=== PATIENT | female | born 1990 | race American Indian/Alaskan Native ===

== ENCOUNTER 2017-01-26 22:40 | Emergency (ER) | payer SELFPAY ==
[2017-01-26] MEDS ORDERED: Sodium Chloride 0.9% 1,000 ML IV ONE (22:55)
[2017-01-26] MEDS ORDERED: Ketorolac 30 MG/ML SDV IVPUSH ONE (23:28)
[2017-01-27] MEDS ORDERED: diphenhydrAMINE 50 MG/ML SDV IVPUSH ONE (00:16)
[2017-01-27] MEDS ORDERED: cefTRIAXone 1 GM in Sodium Chloride 0.9% 50 ML IV ONE (00:17)
[2017-01-27] MEDS ORDERED: cefTRIAXone 1 GM Vial ONE (00:20)
--- NOTE | 2017-01-27 00:23 | EDM.PDOC ---
ED HPI GENERAL MEDICAL PROBLEM - General Chief Complaint: General Stated Complaint: TROUBLE BREATHING Time Seen by Provider: 01/26/17 23:00 Source of Information: Reports: Patient History Limitations: Reports: No Limitations - History of Present Illness INITIAL COMMENTS - FREE TEXT/NARRATIVE: c/o headache yesterday on left side of head, tonight now on right, better after alkazseltzer plus. Blurred vision tonight. Hx similar with migraines. Usually takes benadryl and excedrin migraine but did not have any. No vomiting. No fever. Duration: Day(s): Location: Reports: Head Quality: Reports: Throbbing Headache Pain Score (Numeric/FACES): 9 - Related Data Allergies Allergy/AdvReac Type Severity Reaction Status Date / Time No Known Allergies Allergy Verified 01/26/17 23:11 Home Meds: Home Meds . 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: positive for chlamydia Neurological History: Reports: Migraines Hematologic History: Reports: Anemia - Infectious Disease History Infectious Disease History: Reports: Hepatitis C Social & Family History - Family History Family Medical History: Noncontributory - Tobacco Use Smoking Status *Q: Current Every Day Smoker Years of Tobacco use: 9 Packs/Tins Daily: 0.2 Used Tobacco, but Quit: Yes Month Tobacco Last Used: 10 Second Hand Smoke Exposure: Yes - Caffeine Use Caffeine Use: Reports: Coffee, Soda - Alcohol Use Days Per Week of Alcohol Use: 0 - Recreational Drug Use Recreational Drug Use: No Drug Use in Last 12 Months: Yes ED ROS GENERAL - Review of Systems Review Of Systems: See Below Constitutional: Reports: No Symptoms HEENT: Reports: Vision Change (blurred) Respiratory: Reports: No Symptoms Cardiovascular: Reports: No Symptoms GI/Abdominal: Reports: No Symptoms : Reports: No Symptoms Musculoskeletal: Reports: No Symptoms Skin: Reports: No Symptoms Neurological: Reports: Headache ED EXAM, GENERAL - Physical Exam Exam: See Below Exam Limited By: No Limitations General Appearance: Alert, Mild Distress Eye Exam: Bilateral Eye: EOMI, PERRL Ears: Normal External Exam Nose: Normal Inspection Throat/Mouth: Normal Inspection Head: Atraumatic, Normocephalic Respiratory/Chest: No Respiratory Distress, Lungs Clear, Normal Breath Sounds Cardiovascular: Normal Peripheral Pulses, Regular Rate, Rhythm GI/Abdominal: Normal Bowel Sounds (Female) Exam: Normal External Exam Back Exam: Normal Inspection Extremities: Normal Inspection Neurological: Alert, Oriented, CN II-XII Intact, Normal Cognition, Normal Gait, No Motor/Sensory Deficits Psychiatric: Anxious, Other (dramatic) Skin Exam: Warm, Dry, Intact, Normal Color, No Rash Course - Vital Signs Last Recorded V/S: Last Vital Signs Temp 98.1 F 01/27/17 00:53 Pulse 97 01/27/17 00:53 Resp 16 01/27/17 00:53 BP 92/46 L 01/27/17 00:53 Pulse Ox 97 01/27/17 00:53 - Orders/Labs/Meds Orders: Active Orders 24 hr Category Date Time Status CULTURE STREP A CONFIRMATION [] Stat Lab 01/26/17 23:10 Results STREP SCRN A RAPID W CULT CONF [] Stat Lab 01/26/17 23:10 Results Labs: Laboratory Tests 01/26/17 01/26/17 01/26/17 Range/Units 23:20 23:20 23:20 Urine Color Yellow (YELLOW) Urine Appearance Cloudy (CLEAR) Urine pH 5.5 (5.0-9.0) Ur Specific [place] 1.010 (1.005-1.030) Urine Protein 100 H (NEGATIVE) Urine Glucose (UA) Negative (NEGATIVE) Urine Ketones Negative (NEGATIVE) Urine Occult Blood Moderate H (NEGATIVE) Urine Nitrite Positive H (NEGATIVE) Urine Bilirubin Negative (NEGATIVE) Urine Urobilinogen 1.0 (0.2-1.0) mg/dL Ur Leukocyte Esterase Moderate H (NEGATIVE) Urine RBC 0-5 /HPF Urine WBC >100 H (0-5/HPF) /HPF Ur Epithelial Cells Many H /HPF Urine Bacteria Many H (0-FEW/HPF) /HPF Urine HCG, Qual Negative Urine Opiates Screen Negative (NEGATIVE) Ur Oxycodone Screen Negative (NEGATIVE) Urine Methadone Screen Negative (NEGATIVE) Ur Barbiturates Screen Negative (NEGATIVE) U Tricyclic Antidepress Negative (NEGATIVE) Ur Phencyclidine Scrn Negative (NEGATIVE) Ur Amphetamine Screen Positive H (NEGATIVE) U Methamphetamines Scrn Positive H (NEGATIVE) Urine MDMA Screen Negative (NEGATIVE) U Benzodiazepines Scrn Positive H (NEGATIVE) Urine Cocaine Screen Negative (NEGATIVE) U Marijuana (THC) Screen Negative (NEGATIVE) Meds: Medications Discontinued Medications Generic Name Dose Route Start Last Admin Trade Name Deirdre PRN Reason Stop Dose Admin Ceftriaxone Sodium Confirm 01/27/17 00:20 01/27/17 00:29 Rocephin Administered 01/27/17 00:21 Not Given Dose 1 gm .ROUTE .STK-MED ONE Diphenhydramine HCl 25 mg 01/27/17 00:16 01/27/17 00:22 Benadryl IVPUSH 01/27/17 00:17 25 mg ONETIME ONE Administration Sodium Chloride 1,000 mls @ 999 mls/hr 01/26/17 22:55 01/26/17 23:03 Normal Saline IV 01/26/17 23:55 999 mls/hr .BOLUS ONE Administration Ceftriaxone Sodium 1 gm/ 50 mls @ 100 mls/hr 01/27/17 00:17 01/27/17 00:25 Sodium Chloride IV 01/27/17 00:46 100 mls/hr ONETIME ONE Administration Ketorolac Tromethamine 30 mg 01/26/17 23:28 01/26/17 23:33 Toradol IVPUSH 01/26/17 23:29 30 mg ONETIME ONE Administration - Re-Assessments/Exams Free Text/Narrative Re-Assessment/Exam: 01/27/17 01:07 UDS postive for meth/amphetamine and benzodiazepine. Patient denies use in past 2 months. Departure - Departure Time of Disposition: 01:00 Disposition: Home, Self-Care 01 Condition: good Clinical Impression: Migraine Qualifiers: Migraine type: without aura Status migrainosus presence: without status migrainosus Intractability: not intractable Qualified Code(s): G43.009 - Migraine without aura, not intractable, without status migrainosus UTI (urinary tract infection) Qualifiers: Urinary tract infection type: acute cystitis Hematuria presence: without hematuria Qualified Code(s): N30.00 - Acute cystitis without hematuria - Discharge Information Instructions: Urinary Tract Infection, Adult Forms: ED Department Discharge Additional Instructions: Increase fluids alternate tylenol and ibuprofen for headache pain macrobid 100mg one twice daily for one week follow up if fever, flank pain or vomiting - My Orders Last 24 Hours: My Active Orders 01/26/17 23:10 CULTURE STREP A CONFIRMATION [RM] Stat STREP SCRN A RAPID W CULT CONF [RM] Stat - Assessment/Plan Last 24 Hours: My Active Orders 01/26/17 23:10 CULTURE STREP A CONFIRMATION [RM] Stat STREP SCRN A RAPID W CULT CONF [RM] Stat
[2017-01-27 01:03] VITALS: BP 89/46
== END 2017-01-27 01:12 | disposition home or self-care (01) ==
LOC: DL.ED 22:40
DX: G43.009 Migraine without aura, not intractable, without status migrainosus (principal); N30.00 Acute cystitis without hematuria; F17.210 Nicotine dependence, cigarettes, uncomplicated
CPT/HCPCS: 80305; 81001; 81025; 87081; 87430; 96361; 96365; 96375; 99284; J0696; J1200; J1885; J7030; J7050

== ENCOUNTER 2019-09-10 15:35 | Emergency (ER) | payer MEDICAID ==
[2019-09-10 15:48] VITALS: BP 124/77; PULSE 70
[2019-09-10] MEDS ORDERED: Lidocaine 2% Viscous Solution 15 ML Cup PO ONE (16:00)
[2019-09-10] MEDS ORDERED: Ibuprofen 800 MG Tab PO ONE (16:01)
[2019-09-10] MEDS ORDERED: Clindamycin HCl 150 MG Cap PO ONE (16:01)
--- NOTE | 2019-09-10 16:11 | EDM.PDOC ---
Scribed by Jo-Ann Jerome 09/10/19 1610 for Jass Akers MD ED HPI GENERAL MEDICAL PROBLEM - General Chief Complaint: General Stated Complaint: BOTTOM RIGHT LOWER TOOTH. LAST ONE Time Seen by Provider: 09/10/19 15:50 Source of Information: Reports: Patient, Family, RN, RN Notes Reviewed History Limitations: Reports: No Limitations - History of Present Illness INITIAL COMMENTS - FREE TEXT/NARRATIVE: Patient presents to ER stating that her right lower back tooth broken causing pain. Onset: Gradual Duration: Getting Worse Location: Reports: Other (tooth) Quality: Reports: Ache Severity: Moderate Improves with: Reports: None Worsens with: Reports: None Associated Symptoms: Reports: No Other Symptoms Tooth/Teeth Pain Score (Numeric/FACES): 8 - Related Data Allergies Allergy/AdvReac Type Severity Reaction Status Date / Time No Known Allergies Allergy Verified 09/10/19 15:46 Home Meds: Home Meds No122/Iron/Folic Acid [ Multi Tablet] 1 each PO DAILY 03/24/19 [History] Past Medical History - Past Health History Medical/Surgical History: Denies Medical/Surgical History HEENT History: Reports: None Cardiovascular History: Reports: None Respiratory History: Reports: None Gastrointestinal History: Reports: None Genitourinary History: Reports: None 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: 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 for chlamydia Musculoskeletal History: Reports: None Neurological History: Reports: Migraines Psychiatric History: Reports: Other (See Below) Other Psychiatric History: opioid use Endocrine/Metabolic History: Reports: None Hematologic History: Reports: Anemia Immunologic History: Reports: None Oncologic (Cancer) History: Reports: None Dermatologic History: Reports: None - Infectious Disease History Infectious Disease History: Reports: Hepatitis C - Past Surgical History Head Surgeries/Procedures: Reports: None GI Surgical History: Reports: Cholecystectomy Social & Family History - Family History Family Medical History: Noncontributory - Caffeine Use Caffeine Use: Reports: Coffee, Tea - Living Situation & Occupation Occupation: Other (In [employer] as of 09/10/19) ED ROS GENERAL - Review of Systems Review Of Systems: Comprehensive ROS is negative, except as noted in HPI. ED EXAM, GENERAL - Physical Exam Exam: See Below Exam Limited By: No Limitations General Appearance: Alert, WD/WN, No Apparent Distress Eye Exam: Bilateral Eye: Normal Inspection Nose: Normal Inspection Throat/Mouth: Normal Lips, Normal Oropharynx, Normal Voice, No Airway Compromise , Other (Multiple missing teeth. Rt mandiblar rear molar is factured to the pulp with mild adj. gingival swelling.) Head: Atraumatic, Normocephalic Neck: Normal Inspection, Full Range of Motion. No: Lymphadenopathy (L), Lymphadenopathy (R) Respiratory/Chest: No Respiratory Distress Neurological: Alert, Oriented, No Motor/Sensory Deficits Psychiatric: Normal Mood Skin Exam: Warm, Dry, Intact, Normal Color, No Rash Course - Vital Signs Last Recorded V/S: Last Vital Signs Temp 97.3 F 09/10/19 15:46 Pulse 70 09/10/19 15:46 Resp 16 09/10/19 15:46 BP 124/77 09/10/19 15:46 Pulse Ox 100 09/10/19 15:46 - Orders/Labs/Meds Meds: Medications Discontinued Medications Generic Name Dose Route Start Last Admin Trade Name Freq PRN Reason Stop Dose Admin Clindamycin HCl 300 mg 09/10/19 16:01 Cleocin PO 09/10/19 16:02 ONETIME ONE Ibuprofen 800 mg 09/10/19 16:01 Motrin PO 09/10/19 16:02 ONETIME ONE Lidocaine HCl 15 ml 09/10/19 16:00 Xylocaine 2% Viscous PO 09/10/19 16:01 ONETIME ONE Departure - Departure Time of Disposition: 16:07 Disposition: Home, Self-Care 01 Condition: Good Clinical Impression: Dental caries extending into pulp, Toothache, Dental caries Fractured tooth Qualifiers: Encounter type: initial encounter Fracture type: closed Qualified Code(s): S02.5XXA - Fracture of tooth (traumatic), initial encounter for closed fracture - Discharge Information *PRESCRIPTION DRUG MONITORING PROGRAM REVIEWED*: Not Applicable *COPY OF PRESCRIPTION DRUG MONITORING REPORT IN PATIENT HUGO: Not Applicable Instructions: Dental Abscess, [id number] Forms: ED Department Discharge Additional Instructions: Rx: Viscous Lidocaine 2% Rx: Ibuprofen 800mg Rx: Clindamycin 300mg Follow up with dentist at the first available appointment. Sepsis Event Note - Evaluation Sepsis Screening Result: No Definite Risk - Focused Exam Vital Signs: Vital Signs Temp Pulse Resp BP Pulse Ox 09/10/19 15:46 97.3 F 70 16 124/77 100 Date Exam was Performed: 01/12/20 Time Exam was Performed: 16:05 I have read and agree with the documentation that has been completed regarding this visit. By signing this record, I attest that the documentation was completed in my physical presence and is an accurate record of the encounter.
== END 2019-09-10 16:16 | disposition home or self-care (01) ==
LOC: DL.ED 15:35
DX: K03.81 Cracked tooth (principal); K02.9 Dental caries, unspecified; Z86.2 Personal history of diseases of the blood and blood-forming organs and certain disorders involving the immune mechanism; Z90.49 Acquired absence of other specified parts of digestive tract
CPT/HCPCS: 99282; A9270

== ENCOUNTER 2021-07-14 08:18 | Inpatient (IN) | payer MEDICAID ==
[2021-07-14] MEDS ORDERED: Lidocaine 1% 30 ML SDV INJECT PRN (09:04)
[2021-07-14] MEDS ORDERED: Ondansetron 4 MG/2 ML SDV IVPUSH PRN (09:04)
[2021-07-14] MEDS ORDERED: Sodium Chloride 0.9% 10 ML Syringe FLUSH PRN ×2 (09:04→17:01)
[2021-07-14] MEDS ORDERED: Lactated Ringers 1,000 ML IV ONE (09:04)
[2021-07-14] MEDS ORDERED: Methylergonovine 0.2 MG/1 ML Amp IM PRN (09:04)
[2021-07-14] MEDS ORDERED: Misoprostol 400 MCG (4 X 100 MCG TAB) RECTAL PRN ×2 (09:04→17:01)
[2021-07-14] MEDS ORDERED: Carboprost Tromethamine 250 MCG/1 ML Amp IM PRN ×2 (09:04→17:01)
[2021-07-14] MEDS ORDERED: Tranexamic Acid 1,000 MG in Sodium Chloride 0.9% 100 ML IV PRN ×2 (09:04→17:01)
[2021-07-14] MEDS ORDERED: EPINEPHrine 1 MG/ML SDV ONE ×2 (09:06→15:05)
[2021-07-14] MEDS ORDERED: fentaNYL 100 MCG/2 ML SDV ITHECAL ONE (09:06)
[2021-07-14] MEDS ORDERED: Sodium Bicarbonate 4.2% 2.5 MEQ/5 ML SDV ONE ×2 (09:06→15:05)
[2021-07-14] MEDS ORDERED: Sodium Chloride 0.9% 20 ML SDV ONE (09:06)
[2021-07-14] MEDS ORDERED: Nalbuphine 10 MG/1 ML Vial IM PRN (09:14)
[2021-07-14] MEDS ORDERED: Oxytocin/Normal Saline 30 UNIT/500 ML BAG IV SCH (09:15)
[2021-07-14 09:33] LABS: MDMA (ECSTASY), URINE NEGATIVE (NEGATIVE); METHAMPHETAMINES,URINE NEGATIVE (NEGATIVE)
[2021-07-14 09:34] LABS: AMPHETAMINES,URINE NEGATIVE (NEGATIVE); BARBITURATES,URINE NEGATIVE (NEGATIVE); BENZODIAZEPINE,URINE NEGATIVE (NEGATIVE); METHADONE,URINE NEGATIVE (NEGATIVE); OPIATES,URINE NEGATIVE (NEGATIVE); OXYCODONE,URINE NEGATIVE (NEGATIVE); PHENCYCLIDINE,URINE NEGATIVE (NEGATIVE); TCA,URINE NEGATIVE (NEGATIVE)
[2021-07-14] MEDS: Lactated Ringers 1,000 ML IV SCH ×2 (11:04→15:28)
[2021-07-14] MEDS ORDERED: fentaNYL 100 MCG/2 ML SDV ONE (15:04)
--- NOTE | 2021-07-14 15:26 | PCM.SN.2 ---
- Free Text/Narrative Note: Intrathecal. Sitting position, sterile prep and drape. 1% lidocaine for skinwheal to L2 L3 interspace, introducer, 24 ga Pencan x 1. Pos CSF. Neg heme, neg parasthesia. 0.1 ml 1:1000 pf epi, 20 mcg pf sufenta, 30 mcg pf fentanyl, 0.4 ml pf NS and 6 mg of 0.75% pf Marcaine injected after CSF aspiration. Pt to L lateral position. Procedure time 1455 to 1530
[2021-07-14] MEDS ORDERED: Acetaminophen 325 MG Tab PO PRN (17:01)
[2021-07-14] MEDS ORDERED: Oxytocin 10 Units/1 ML SDV IM PRN (17:01)
[2021-07-14] MEDS ORDERED: Simethicone 80 MG Tab.Chew PO PRN (17:01)
[2021-07-14] MEDS ORDERED: Benzocaine/Menthol 20%-0.5% Spray 78 GM Cannister TOP PRN (17:01)
--- NOTE | 2021-07-14 17:23 | HP ---
CHIEF COMPLAINT: Leakage of fluid. HISTORY OF PRESENT ILLNESS: Pao is a 31-year-old, G5, P4-0-0-4 at 37 and 4/7 weeks' gestation based on ultrasound. Reports that last night she thought she peed in her pants at 8 p.m., went to the bathroom to void, and leakage of fluid persisted. She did notice some blood in the toilet. She has filled 2 pads with fluid since 8 p.m. on 07/13/2021. She did not notice contractions until about 7 a.m. today, July 14, but they are still not painful at presentation. Since she had leakage of fluid, she decided to be brought in. OBSTETRICAL HISTORY: significant for high-risk , late care, maternal hep C positivity, trichomoniasis, maternal anemia of , and hemorrhoids. Pao will be a grand multip after delivery with 4 prior vaginal deliveries at term. LABORATORY DATA: Blood type A positive, antibody screening negative, syphilis negative, hep B negative, HIV negative, gonorrhea and chlamydia negative. TSH within normal limits. Hepatitis C is reactive with elevated quant. Wet prep was positive for trichomoniasis, treated with Flagyl. Normal 1- hour glucose tolerance test at 113, hemoglobin 10.7, and platelets 446. GBS negative. PAST MEDICAL HISTORY: Significant for hepatitis C, history of drug use in , abnormal Pap requiring a LEEP in 2011. PAST SURGICAL HISTORY: Cholecystectomy in 2007. FAMILY HISTORY: Significant for type 2 diabetes in aunts and grandmothers. SOCIAL HISTORY: Pao lives with the father of her baby and youngest son [place] [address] She feels safe at home. REVIEW OF SYSTEMS: The patient denies vision changes, headache, chest pain, shortness of breath, right upper quadrant pain, edema, nausea, and vomiting. Endorses leakage of fluid, movement, and contractions. MEDICATIONS: Include vitamin, antacid chewable, hydrocortisone rectal cream, iron, hydroxyzine, and Flagyl. ALLERGIES: No known drug allergies. OBJECTIVE: General: The patient is pleasant and well appearing. Vital Signs: Blood pressure 110/62, temperature 98, heart rate 89, respiratory rate 16. HEENT: Unremarkable. Heart: Regular rate and rhythm without murmur. Lungs: Clear to auscultation bilaterally. Abdomen: Soft, nontender. Fetus palpates in the vertex position with baseline of 140, moderate variability, acels present, category 1 tracing. Biggers shows contractions every 5 to 7 minutes. Cervix: At presentation was 3 cm dilated, 50% effaced at +1 station. Extremities: Without edema. Skin: No jaundice. Neurologic: Appropriate without deficit. ASSESSMENT: 1. 37 and 4/7 weeks intrauterine based on ultrasound dating. 2. 5, para 4-0-0-4. 3. Premature rupture of membranes. 4. Chronic hepatitis C without coma. 5. High-risk in 3rd trimester. 6. Late care. 7. Maternal anemia. PLAN: Admit to the hospital at this time and begin induction of labor for premature rupture of membranes to help things along. She has not used pain management in the past, but we will have that available intrathecal or Nubain IM, and we anticipate vaginal delivery pending clinical course. All of her questions have been answered. The patient is seen by myself and Dr. Frye. Assessment and plan are under advisement of Dr. Frye. Seen with medical student. Patient was personally seen and examined with the medical student practitioner student, Juan Santiago. I reviewed the noted scribed on my behalf and necessary changes have been made to reflect my opinion on the history, exam, assessment, and plan [facility] /[id number] MTDD
[2021-07-14] MEDS: Ibuprofen 800 MG Tab PO PRN (19:56)
[2021-07-14] MEDS: Docusate Sodium 100 MG Cap PO PRN (19:56)
--- NOTE | 2021-07-15 05:53 | OBOUT ---
DATE: 07/14/2021 DATE AND TIME OF NST: 07/14/2021. Time, 9:10 to 9:30. REASON FOR NST: 1. Intrauterine at 37 and 4/7 weeks by 29 and 6/7 week ultrasound. 2. Pre-labor rupture of membranes confirmed with symptoms, pooling, nitrazine, ferning and AmniSure being positive. 3. GBS negative. 4. Hepatitis C positive status with quant hep C positive during this . 5. History of LEEP in 2011. 6. History of trichomoniasis during this , treated. 7. Anemia, this . Hemoglobin pending. 8. G5, P4-0-0-4. NST INTERPRETATION: During this time period, heart tone at baseline is approximately 130 and at least two 15 x 15 beats per minute acceleration, making this strip reactive as well as reassuring. Tocometer reveals potentially 2 contractions. ASSESSMENT: 1. Nonstress test, reactive and reassuring. 2. Tocometer with contractions. PLAN: The patient was seen and evaluated by me as well as worked and seen and evaluated with RAGHAV Figueroa. Please see her notes for history and physical and for this records were called for, reviewed, summarized and supplemented by patient history as well as review of systems reviewed and felt to be contributory as noted. The patient notes feeling occasional contractions. They are not very regular and we will start Pitocin at 2 milliunits and up by 2 every 30 minutes. COVID test is currently pending as well as other labs other than noted above. In addition, an urine drug screen was negative. Plan, please see H and P done in conjunction with RAGHAV Figueroa. Seen and agreed. [facility] /[id number]
[2021-07-15] MEDS: Prenatal Multivitamin with Calcium/Folic Acid/Iron Tab PO SCH (08:20)
[2021-07-15] MEDS: Docusate Sodium 100 MG Cap PO PRN ×2 (08:20→21:06)
[2021-07-15] MEDS: Ibuprofen 800 MG Tab PO PRN ×2 (08:20→17:22)
--- NOTE | 2021-07-15 08:53 | PN ---
DATE: 07/14/2021 SUBJECTIVE: The patient is now status post intrathecal and comfortable. Not feeling much for contractions or pain. OBJECTIVE: heart tones in the 120s to 130s range. Accelerations noted. Tocometer reveals contractions every couple of minutes. Vaginal exam reveals be 9 cm with an anterior rim, 100% effaced, -1 station, and vertex suspected. ASSESSMENT/PLAN: Intrauterine at 37-4/7 weeks by 29-6/7 ultrasound with prelabor rupture of membranes, undergone Pitocin augmentation, and GBS negative; G5, P4-0-0-4 with hepatitis C positive status; history of LEEP in 2011; history of trichomoniasis during this , treated; and anemia during this . Currently nearing second stage of labor. We will continue to follow clinically and closely at this point in time. [facility] /[id number]
--- NOTE | 2021-07-15 08:58 | DEL ---
DATE: 07/14/2021 PREOPERATIVE DIAGNOSES: 1. Intrauterine at 37-4/7 weeks by 29-6/7 week ultrasound. 2. Prelabor rupture of membranes, requiring Pitocin augmentation. 3. Prolonged rupture of membranes being approximately 25 to 26 hours after rupture of membranes to delivery. 4. Group B Streptococcus negative. 5. Hepatitis C positive status. 6. History of loop electrosurgical excision procedure in 2011. 7. History of trichomoniasis in the , treated. 8. History of anemia in the . 9. G5, P4-0-0-4. POSTOPERATIVE DIAGNOSES: 1. Intrauterine at 37-4/7 weeks by 29-6/7 week ultrasound, delivered. 2. Foul-smelling amniotic fluid, nonpurulent appearing. 3. Prelabor rupture of membranes, requiring Pitocin augmentation. 4. Prolonged rupture of membranes being approximately 25 to 26 hours after rupture of membranes to delivery. 5. Group B Streptococcus negative. 6. Hepatitis C positive status. 7. History of loop electrosurgical excision procedure in 2011. 8. History of trichomoniasis in the , treated. 9. History of anemia in the . 10.G5, P4-0-0-4. PROCEDURE PERFORMED: Nonstress test followed by Pitocin augmentation and then subsequent spontaneous vaginal delivery. [employer] STAFF OFFICER: Veronica Santiago, MS3 ANESTHESIA/ANALGESIA: The patient did receive an intrathecal in the first stage of labor. ESTIMATED BLOOD LOSS: 300 mL. FINDINGS: Male. Apgars and weight pending. SUMMARY OF EVENTS: The patient is a 31-year-old G5, P4-0-0-4 intrauterine at 37-4/7 weeks by 29-6/7 week ultrasound with rupture of membranes approximately between 3 and 4 p.m. on 07/13/2021, who presented with leaking of vaginal fluid. She was found to have spontaneous rupture of membranes. Started Pitocin augmentation as soon as possible. She is GBS negative status and then proceeded into an active labor course. She did receive an intrathecal in the first stage of labor. She was subsequently found to be complete upon my entry into the room and I donned sterile gown and gloves as well as did Juan Santiago, and subsequently the patient started pushing with contractions, and vertex was delivered in VIOLETA presentation, followed by anterior and posterior shoulders as well as rest of the infant without difficulty. Mouth and nares were suctioned. Cord was doubly clamped and cut. was taken over to warmer for resuscitation. Foul-smelling fluid was suspected at that time. It did not appear exudative in nature and the placenta did not have a significant odor or exudate noted. Subsequently, placenta delivered with gentle cord traction and fundal massage within 10 minutes. Perineum, vagina, and perirectal areas were examined without any tears or lacerations or bleeding that required repair. Mother and are currently stable at time of dictation. [facility] /[id number]
--- NOTE | 2021-07-15 09:43 | PN ---
DATE: 07/15/2021 SUBJECTIVE: Pao reports no acute overnight events. She has voided and passed gas. No bowel movement yet. Tolerating diet. Ambulating well. Mother and baby are bonding appropriately. Pao is well with a nipple shield. REVIEW OF SYSTEMS: Denies fevers, chills, headache, vision changes, chest pain, shortness of breath, right upper quadrant pain, nausea, vomiting, or extremity edema. Endorses mild lochia, pelvic and abdominal tenderness. OBJECTIVE: Vitals: T 98.1, BP 113/56, HR 84, RR 16, O2 sat. 98% on room air. General: Alert, oriented, no acute distress. Eyes: Extraocular movements intact. Pupils equal, round, reactive to light. Heart: Regular rate and rhythm without murmur. Lungs: Clear to auscultation bilaterally. Abdomen: Soft. Mildly tender on palpation. Uterus firm. Fundal height palpates at 1 to 2 fingerbreadths below umbilicus. Extremities: No clonus. No edema. PERTINENT LABS: hemoglobin: 9.5 platelets ASSESSMENT: 1. Status post normal spontaneous vaginal delivery. 2. 37-4/7 weeks' intrauterine . 3. 5, para 5-0-0-5. 4. Premature rupture of membranes. 5. Induction of labor for premature rupture of membranes. 6. Chronic hepatitis C. PLAN: Anticipate normal care. Work with nursing on . The patient will need to be watched carefully for at least 48 hours due to spontaneous rupture of membranes about 25 to 26 hours before delivery and foul- smelling, nonpurulent amniotic fluid. Plan for discharge on evening of Wednesday, July 16, pending clinical course. The patient was seen today by myself and Dr. Frye. Assessment and plan are under the advisement of Dr. Frye. Seen with medical student. Patient was personally seen and examined with the medical student practitioner student, Juan Santiago. I reviewed the noted scribed on my behalf and necessary changes have been made to reflect my opinion on the history, exam, assessment, and plan [facility] /[id number] [facility]
[2021-07-15] MEDS: Acetaminophen 325 MG Tab PO PRN (21:06)
[2021-07-16] MEDS: Ibuprofen 800 MG Tab PO PRN ×2 (02:31→16:32)
[2021-07-16] MEDS: Acetaminophen 325 MG Tab PO PRN (08:21)
[2021-07-16] MEDS: Docusate Sodium 100 MG Cap PO PRN (08:21)
[2021-07-16] MEDS: Prenatal Multivitamin with Calcium/Folic Acid/Iron Tab PO SCH (08:21)
[2021-07-16 08:37] VITALS: BP 104/56; PULSE 88
[2021-07-16] MEDS ORDERED: fentaNYL 100 MCG/2 ML SDV ITHECAL ONE (17:01)
[2021-07-16] MEDS ORDERED: Sodium Chloride 0.9% 20 ML SDV ONE (17:01)
[2021-07-16] MEDS ORDERED: EPINEPHrine 1 MG/ML SDV ONE (17:01)
[2021-07-16] MEDS ORDERED: Sodium Bicarbonate 4.2% 2.5 MEQ/5 ML SDV ONE (17:01)
--- NOTE | 2021-07-17 11:44 | DISCH ---
ADMISSION DIAGNOSES: 1. Intrauterine at 37 and 4/7 weeks by 29-week ultrasound. 2. Prelabor rupture of membranes requiring Pitocin augmentation. 3. Prolonged rupture of membranes being approximately 25 to 26 hours after rupture of membranes to delivery. 4. Group B streptococcus negative. 5. Hepatitis C positive. 6. History of loop electrosurgical excision procedure in 2011. 7. History of trichomoniasis in , treated. 8. History of anemia in . 9. G5, P4-0-0-4. DISCHARGE DIAGNOSES: 1. Intrauterine at 37 and 4/7 weeks by 29-week ultrasound. 2. Prelabor rupture of membranes requiring Pitocin augmentation. 3. Prolonged rupture of membranes being approximately 25 to 26 hours after rupture of membranes to delivery. 4. Group B streptococcus negative. 5. Hepatitis C positive. 6. History of loop electrosurgical excision procedure in 2011. 7. History of trichomoniasis in , treated. 8. History of anemia in . 9. G5, now P5-0-0-4. 10.Foul-smelling amniotic fluid, [id number]. PROCEDURE: Nonstress test followed by Pitocin augmentation and then subsequent spontaneous vaginal delivery. HISTORY OF PRESENT ILLNESS: Pao is a 31-year-old, G5, now P5-0-0-5 at 37 and 4/7 weeks' gestation based on ultrasound at about 30 weeks. Pao reports that the day before admission, she suspects she had spontaneous rupture of membranes at home due to leakage of fluid in her pants. She filled 2 pads with blood- tinged fluid between 8 p.m. on 07/13/2021 and presentation at 7 a.m. on 07/14/2021. She did not notice contractions until about 7 a.m. on 07/14/2021. They were not painful at presentation, but since she had leakage of fluid, she did decide to be brought in and Pitocin augmentation was initiated upon confirmation of rupture of membranes. This is significant for high-risk , late care, maternal hep C positivity, trichomoniasis in , maternal anemia of , and hemorrhoids. Pao is now a grand-multip after her 5th vaginal delivery at term. The patient is blood type A positive, antibody screen negative, syphilis negative, hep B negative, HIV negative, gonorrhea and chlamydia negative. TSH within normal limits. Hepatitis C is reactive and has elevated quant. Wet prep was positive for trichomoniasis, treated with Flagyl. Normal 1-hour glucose tolerance test at 113. Hemoglobin was 10.7, platelets were 446. The patient is GBS negative. CLINICAL COURSE: The patient upon presentation was found to have spontaneous rupture of membranes. Pitocin augmentation was started as soon as possible and then patient proceeded into an active labor course. She did receive an intrathecal in the 1st stage of labor, approximately 8 hours between onset of Pitocin and delivery. Stage II of labor lasting approximately 30 minutes, the patient pushed through contractions. Stage III of labor lasting 10 minutes before placental delivery via gentle cord contraction and fundal massage. Fetus was delivered in VIOLETA presentation, followed by anterior and posterior shoulders, and the rest of the infant without difficulty. Mouth and nares were suctioned. Cord was doubly clamped and cut. Infant was taken over to the warmer for resuscitation. Foul-smelling fluid was suspected at that time. It did not appear exudative in nature and the placenta did not have a significant odor or exudate noted. did require about 30 seconds of positive-pressure ventilation for resuscitation. score was 5 and 9 at 1 and 5 minutes respectively. Mother and were stable following delivery and resuscitation, rinaldi hour and [id number] initiated. SUBJECTIVE: On the date of discharge, the patient only complained of a sore lower back. The pain is well controlled with Tylenol and ibuprofen. The patient is well, bonding appropriately with , reports minimal lochia. She is ambulating well, tolerating diet, and on review of systems denies any signs or symptoms of preeclampsia or hemorrhage. OBJECTIVE: Vitals Signs: Temperature 97.9, heart rate 88, blood pressure 104/56, and respiratory rate 18. HEENT: PERRL. Moist mucous membranes. No nasal congestion. Heart: Regular rate and rhythm without murmur. Lungs: Clear to auscultation bilaterally. Abdomen: Soft, nontender. Fundus palpates at approximately 4 fingerbreadths below umbilicus. Extremities: Without edema. Skin: No jaundice or excoriations. Neurologic: Appropriate without deficit. No clonus or hyperreflexia. LABORATORY DATA: Admission hemoglobin 11.1, admission platelets 313, discharge hemoglobin 9.5, discharge platelets 287. DISCHARGE CONDITION: Good. DISPOSITION: Discharge to home. MEDICATIONS: vitamin. INSTRUCTIONS: Activity as tolerated, do not lift more than 20 lbs, pelvic rest for 6 weeks. Diet as tolerated. Instructed of signs and symptoms of preeclampsia and hemorrhage as well as red flag signs like a spike in fever, increased bleeding, vision changes, nausea, vomiting, diarrhea. FOLLOWUP: The patient and will be seen in clinic on 07/18/2021. The patient to present to emergency room or to clinic for any concerning signs and symptoms. The patient was seen by myself and Dr. Frye. Entire admission, assessment, and plan are under advisement of Dr. Frye. seen and agreed-[facility]EN [facility] /[id number] [place]
== END 2021-07-16 17:35 | disposition home or self-care (01) | DRG 807 ==
LOC: DL.OBCHECK 08:18 → DL.OB 09:05 → OBSVTOIN 16:55 → DL.MS 07-15 02:40
PROVIDERS: ADMIT Family Medicine; ATTEND Family Medicine
PROC: 10E0XZZ Delivery of Products of Conception, External Approach (ICD-10-PCS; principal; 2021-07-14)
PROC: 3E0R3BZ Introduction of Anesthetic Agent into Spinal Canal, Percutaneous Approach (ICD-10-PCS; 2021-07-14)
PROC: 00HU33Z Insertion of Infusion Device into Spinal Canal, Percutaneous Approach (ICD-10-PCS; 2021-07-14)
DX: O42.12 Full-term premature rupture of membranes, onset of labor more than 24 hours following rupture (principal); Z37.0 Single live birth; O99.02 Anemia complicating childbirth; D64.9 Anemia, unspecified; O99.62 Diseases of the digestive system complicating childbirth; K73.9 Chronic hepatitis, unspecified; Z20.822 Contact with and (suspected) exposure to COVID-19; Z3A.37 37 weeks gestation of pregnancy; Z90.49 Acquired absence of other specified parts of digestive tract; Z28.82 Immunization not carried out because of caregiver refusal
CPT/HCPCS: 01967; 36415; 59409; 80305-QW; 82274; 84112; 85027; A9270-GY; J0171; J2405; J2590; J3010; J7120; U0002

== ENCOUNTER 2022-10-17 16:07 | Emergency (ER) | payer SELFPAY ==
[2022-10-17 19:10] VITALS: BP 125/77; PULSE 75
== END 2022-10-17 19:23 | disposition home or self-care (01) ==
LOC: DL.ED 16:07
DX: L02.412 Cutaneous abscess of left axilla (principal)
CPT/HCPCS: 99282; 99283

== ENCOUNTER 2023-04-03 12:48 | Emergency (ER) | payer SELFPAY ==
[2023-04-03 13:10] VITALS: BP 121/78; PULSE 76
[2023-04-03] MEDS: Ondansetron 4 MG/2 ML SDV IV ONE (13:11)
[2023-04-03] MEDS: Sodium Chloride 0.9% 1,000 ML IV ONE (13:11)
[2023-04-03] MEDS: Sodium Chloride 0.9% 10 ML Syringe FLUSH PRN (13:11)
[2023-04-03 13:22] LABS: BASOPHILS PERCENT AUTO 0.2 % (0.0-1.0); EOSINOPHILS PERCENT AUTO 1.3 % (1.0-3.0); HEMATOCRIT 35.6 % (37.0-47.0); HEMOGLOBIN 11.1 g/dL (12.0-16.0); LYMPHOCYTES PERCENT AUTO 28.8 % (20.5-50.1); MEAN CORPUSCULAR HEMOGLOBIN 24.1 pg (27.0-34.0); MEAN CORPUSCULAR HGB CONC 31.2 g/dL (33.0-35.0); MEAN CORPUSCULAR VOLUME 77.2 fL (80-100); MONOCYTES PERCENT AUTO 13.3 % (2-8); NEUTROPHILS PERCENT AUTO 56.4 % (42.2-75.2); PLATELET COUNT,PLT 337 10^3/uL (150-450); RED BLOOD CELL COUNT 4.61 10^6/uL (4.2-5.4); WHITE BLOOD CELL COUNT,WBC 4.7 10^3/uL (5.0-10.0)
[2023-04-03 13:26] LABS: APPEARANCE,URINE SLIGHTLY CLOUDY (CLEAR); BILIRUBIN,URINE NEGATIVE (NEGATIVE); COLOR,URINE YELLOW (YELLOW); GLUCOSE,URINE NEGATIVE (NEGATIVE); KETONES,URINE TRACE (NEGATIVE); LEUKOCYTE ESTERASE,URINE NEGATIVE (NEGATIVE); NITRITE,URINE NEGATIVE (NEGATIVE); OCCULT BLOOD,URINE SMALL (NEGATIVE); PROTEIN,URINE 30 (NEGATIVE); UROBILINOGEN,URINE 0.2 mg/dL (0.2-1.0)
[2023-04-03 13:40] LABS: A/G RATIO 0.7; ALBUMIN 3.8 g/dL (3.4-5.0); ANION GAP 12.5 mEq/L (7-13); BILIRUBIN TOTAL 0.5 mg/dL (0.2-1.0); CALCIUM 8.6 mg/dL (8.5-10.1); EST CRCL DRUG DOSING (CG) 68.76 mL/min; POTASSIUM,K 3.5 mmol/L (3.5-5.1); PROTEIN TOTAL,TP 9.2 g/dL (6.4-8.2)
[2023-04-03 13:43] LABS: LACTIC ACID 0.8 mmol/L (0.4-2.0)
[2023-04-03 13:45] LABS: AMORPHOUS SEDIMENT,URINE FEW /HPF (NOT SEEN); BACTERIA,URINE MANY /HPF (0-FEW/HPF); EPITHELIAL CELLS,URINE MODERATE /HPF (NOT SEEN); MUCUS,URINE MODERATE /LPF (NOT SEEN)
[2023-04-03] MEDS ORDERED: Take Home: Ondansetron 4 MG Tab.DIS, 5 Tab Pack PO ONE (14:00)
== END 2023-04-03 14:14 | disposition home or self-care (01) ==
LOC: DL.ED 12:48
DX: A08.4 Viral intestinal infection, unspecified (principal); Z79.899 Other long term (current) drug therapy
CPT/HCPCS: 36415; 80053; 81001; 81025; 83605; 83690; 85025; 96361; 96374; 99283; 99284-25; J2405; J3490; J7030

== ENCOUNTER 2023-12-07 21:32 | Emergency (ER) | payer MEDICAID ==
[2023-12-07] MEDS: Lidocaine 2% 20 ML MDV INJECT ONE (22:00)
[2023-12-07] MEDS: Lidocaine 2% 100 MG/5 ML Syringe ONE (22:01)
[2023-12-07 22:12] VITALS: BP 122/73; PULSE 68
== END 2023-12-07 22:16 | disposition home or self-care (01) ==
LOC: DL.ED 21:32
DX: G43.009 Migraine without aura, not intractable, without status migrainosus (principal); Z79.899 Other long term (current) drug therapy; Z90.49 Acquired absence of other specified parts of digestive tract
CPT/HCPCS: 64400; 99282; 99283-25; J3490